=== PATIENT | male | born 1965 | race Two or more races ===

== ENCOUNTER 2017-05-20 00:37 | Emergency (ER) | payer OTHER ==
[~2017-05-20] VITALS: Ht 185.4 cm; Wt 86.2 kg
[2017-05-20 01:14] VITALS: BP 127/83
== END 2017-05-20 02:22 | disposition home or self-care (01) ==
LOC: ER 00:38
DX: S40.012A Contusion of left shoulder, initial encounter (principal); L40.59 Other psoriatic arthropathy; Z90.5 Acquired absence of kidney; V49.59XA Passenger injured in collision with other motor vehicles in traffic accident, initial encounter; Y93.89 Activity, other specified; Y92.413 State road as the place of occurrence of the external cause; Y99.8 Other external cause status
CPT/HCPCS: 73030-TC; A4606; Z7610